=== PATIENT | female | born 1935 | race Caucasian/White ===

== ENCOUNTER 2021-05-24 19:08 | Emergency (ER) | payer MEDICARE ==
[~2021-05-24] VITALS: Ht 162.6 cm; Wt 70.0 kg
--- NOTE | 2021-05-24 19:22 | ED.ADGEN ---
General Adult EDM: Chief Complaint: MECHANICAL FALL HPI: HPI: Patient is a 86 year old female brought in by EMS after being found down. Patient is a nursing facility and was able to "escape" during dinnertime. She was found at another nursing facility on the ground. Patient had evidence of head trauma unknown downtime. Last was seen a few hours prior to being found. Blood on the ground per EMS was coagulated. States she is not on any blood thinners. Has a history of severe dementia and is at her baseline GCS 14. EMS was told that when they are trying to get her up with a "felt a pop" in her hip but did not tell EMS which side. Received both doses of her COVID-19 vaccine was unsure which one, last tetanus about 1 year ago. Review of Systems: Review of Systems: Unable to assess due to patient's dementia, she states no other complaints Current Medications: Current Medications Medications (Trade) Dose Ordered Sig/Christal Start Time Stop Time Status Last Admin Dose Admin Fentanyl Citrate (Fentanyl 2ml Vial) 25 mcg 1X ONCE 05/24/21 21:15 05/24/21 21:16 DC 05/24/21 21:41 25 MCG Lorazepam (Ativan Inj) 0.5 mg 1X ONCE 05/24/21 21:15 05/24/21 21:16 DC 05/24/21 21:41 0.5 MG Quetiapine Fumarate (SEROquel) 100 mg 1X STAT 05/24/21 20:18 05/24/21 20:43 DC 05/24/21 21:05 100 MG Allergies: Allergies: Allergies Coded Allergies Type Severity Reaction Last Updated Verified celecoxib Allergy Intermediate 05/24/21 Yes clonidine Allergy Intermediate 05/24/21 Yes hydrocodone Allergy Intermediate 05/24/21 Yes metronidazole Allergy Intermediate 05/24/21 Yes Physical Exam: PE: Constitutional: Well developed, well nourished, no acute distress, non-toxic appearance. [] HENT: Normocephalic, left occipital scalp hematoma, bilateral external ears normal, nose normal. [] Eyes: PERRLA, conjunctiva normal, no discharge. Pupils pinpoint [] Neck: No rigidity, supple, no stridor. [] Cardiovascular: Regular rate and rhythm, brisk cap refill [] Lungs & Thorax: Non labored symmetric respirations, no tachypnea or respiratory distress [] Abdomen: Soft, nondistended. Skin: Warm, dry, no erythema, no rash. Left occipital scalp superficial laceration, no active bleeding, several abrasions] Back: Unremarkable, no tenderness, no step-off or deformity Extremities: No deformities, range of motion grossly intact, no lower extremity edema. No tenderness palpation of extremity [] Neurologic: Alert and oriented X 3, no focal deficits noted. [] Psychologic: Affect normal, judgement normal, mood normal. [] Current Patient Data: Labs: Laboratory Tests Test 05/24/21 19:37 White Blood Count 7.1 x10^3/uL (4.0-11.0) Red Blood Count 3.80 x10^6/uL (3.50-5.40) Hemoglobin 11.9 g/dL (12.0-15.5) L Hematocrit 35.0 % (36.0-47.0) L Mean Corpuscular Volume 92 fL (79-100) Mean Corpuscular Hemoglobin 31 pg (25-35) Mean Corpuscular Hemoglobin Concent 34 g/dL (31-37) Red Cell Distribution Width 16.3 % (11.5-14.5) H Platelet Count 253 x10^3/uL (140-400) Neutrophils (%) (Auto) 57 % (31-73) Lymphocytes (%) (Auto) 30 % (24-48) Monocytes (%) (Auto) 9 % (0-9) Eosinophils (%) (Auto) 3 % (0-3) Basophils (%) (Auto) 2 % (0-3) Neutrophils # (Auto) 4.1 x10^3/uL (1.8-7.7) Lymphocytes # (Auto) 2.1 x10^3/uL (1.0-4.8) Monocytes # (Auto) 0.6 x10^3/uL (0.0-1.1) Eosinophils # (Auto) 0.2 x10^3/uL (0.0-0.7) Basophils # (Auto) 0.1 x10^3/uL (0.0-0.2) Sodium Level 141 mmol/L (136-145) Potassium Level 3.2 mmol/L (3.5-5.1) L Chloride Level 102 mmol/L (98-107) Carbon Dioxide Level 28 mmol/L (21-32) Anion Gap 11 (6-14) Blood Urea Nitrogen 14 mg/dL (7-20) Creatinine 0.8 mg/dL (0.6-1.0) Estimated GFR (Cockcroft-Gault) 67.7 BUN/Creatinine Ratio 18 (6-20) Glucose Level 123 mg/dL (70-99) H Calcium Level 10.4 mg/dL (8.5-10.1) H Total Bilirubin 1.8 mg/dL (0.2-1.0) H Aspartate Amino Transferase (AST) 22 U/L (15-37) Alanine Aminotransferase (ALT) 17 U/L (14-59) Alkaline Phosphatase 86 U/L (46-116) Creatine Kinase 58 U/L (26-192) Myoglobin 82 ng/mL (9-82) Troponin I Quantitative < 0.017 ng/mL (0.000-0.055) SF-Qui-Q-Type Natriuretic Peptide 267 pg/mL (0-449) Total Protein 7.4 g/dL (6.4-8.2) Albumin 3.5 g/dL (3.4-5.0) Albumin/Globulin Ratio 0.9 (1.0-1.7) L Laboratory Tests 05/24/21 19:37 Laboratory Tests 05/24/21 19:37 Vital Signs: Vital Signs Date Time Temp Pulse Resp B/P (MAP) Pulse Ox O2 Delivery O2 Flow Rate FiO2 05/24/21 21:41 16 95 05/24/21 19:15 98.9 90 182/86 (118) Room Air 98.9 EKG: EKG: Ventricular rhythm, heart rate 70/min, right axis deviation [] Heart Score: C/O Chest Pain: No HEART Score for Chest Pain: HEART Score for Chest Pain Response (Comments) Value History Slighlty/Non-Suspicious 0 ECG Nonspecific Repolarizatio 1 Age > 65 2 Risk Factors 1 or 2 Risk Factors 1 Troponin < Normal Limit 0 Total 4 Risk Factors: Risk Factors: DM, Current or recent (<one month) smoker, HTN, HLP, family history of CAD, obesity. Risk Scores: Score 0 - 3: 2.5% MACE over next 6 weeks - Discharge Home Score 4 - 6: 20.3% MACE over next 6 weeks - Admit for Clinical Observation Score 7 - 10: 72.7% MACE over next 6 weeks - Early Invasive Strategies Radiology/Procedures: Radiology/Procedures: [facility] [address] [place] [address] IMAGING REPORT Signed PATIENT: RAMIN GARIBAY ACCOUNT: [id number] : 1935 LOCATION: ER AGE: 86 SEX: F EXAM STATUS: REG ER ORD. PHYSICIAN: MAINOR GOMEZ MD REASON: fall PROCEDURE: HIP BILATERAL WITH PELVIS Examination: Frontal view of the chest, 2 views of the bilateral hips HISTORY: History of fall COMPARISON: None available FINDINGS: Low lung volumes and technique accentuates heart size and pulmonary vascularity. Left-sided cardiac pacer is identified. The lungs are clear. Left total hip arthroplasty changes. Moderate joint space loss right hip joint likely degenerative changes. No acute fracture identified. Moderate degenerative changes lower lumbar spine. IMPRESSION: 1. No acute osseous findings. 2. Moderate degenerative changes right hip joint. 2. No acute cardiopulmonary findings. Electronically signed by: Mode Venegas MD (05/24/2021 8:34 PM) [id number] DICTATED and SIGNED BY: MODE VENEGAS MD DATE: 05/24/[id number] 0 [][address] [address] IMAGING REPORT Signed PATIENT: RAMIN GARIBAY ACCOUNT: [id number] : 1935 LOCATION: ER AGE: 86 SEX: F EXAM STATUS: REG ER ORD. PHYSICIAN: MAINOR GOMEZ MD REASON: head trauma PROCEDURE: CT HEAD AND CERVICAL SPINE WO CT head without contrast. CT cervical spine without contrast. PQRS statement: CT scans at this facility use dose reduction including either automated exposure control, iterative reconstructions, and /or weight based radiation dosing via mA and kV modification when appropriate to reduce radiation dose to as low as reasonably achievable. HISTORY: Head trauma, injury, history of fall. CT abdomen findings: Mild generalized brain atrophy. No intracranial hemorrhage, mass, hydrocephalus, extra-axial fluid collections or infarction. 2 cm right parietal periventricular white matter hypoattenuating lesion could represent a chronic lacunar ischemic infarct. Left parietal and occipital scalp subcentimeter in thickness hematoma. Fluid within the sphenoid sinuses. No fracture of the skull base or calvarium. Orbits are unremarkable. IMPRESSION: 1. No acute intracranial CT abnormality. 2. Mild left parietal occipital scalp hematoma. No skull fracture. 3. Sphenoid sinus fluid could be due to sinusitis. CT cervical spine findings: Craniocervical junction intact. Cervical vertebral body height and alignment intact. 2 mm anterolisthesis of C3 on C4, 2 mm anterolisthesis of C5 on C6 and 3 mm anterolisthesis of C6 on C7 and 3 mm yash listhesis C7 on T1 associated with disc disease and facet arthritis at these levels. Osteoarthritis of the C1-C2 atlantodental articulation and joint capsule thickening as well as arthritis with bone spurring at the left lateral mass articulation. No fracture of the cervical spine. Multilevel cervical disc height loss, disc bulges and protrusions and uncovertebral facet spurring with spinal canal and neural foraminal stenoses at several levels, as well as spinal canal stenosis due to the joint capsule thickening at C1-C2. IMPRESSION: No acute osseous injury of the cervical spine. Cervical disc disease and facet arthritis as described above. Electronically signed by: Halley Strange MD (05/24/2021 10:29 PM) [id number] DICTATED and SIGNED BY: HALLEY STRANGE MD DATE: 05/24/21 [id number] [facility] [address] [place] [address] IMAGING REPORT Signed PATIENT: RAMIN GARIBAY ACCOUNT: [id number] : 1935 LOCATION: ER AGE: 86 SEX: F EXAM STATUS: REG ER ORD. PHYSICIAN: MAINOR GOMEZ MD REASON: fall PROCEDURE: CHEST AP ONLY Examination: Frontal view of the chest, 2 views of the bilateral hips HISTORY: History of fall COMPARISON: None available FINDINGS: Low lung volumes and technique accentuates heart size and pulmonary vascularity. Left-sided cardiac pacer is identified. The lungs are clear. Left total hip arthroplasty changes. Moderate joint space loss right hip joint likely degenerative changes. No acute fracture identified. Moderate degenerative changes lower lumbar spine. IMPRESSION: 1. No acute osseous findings. 2. Moderate degenerative changes right hip joint. 2. No acute cardiopulmonary findings. Electronically signed by: Mode Venegas MD (05/24/2021 8:34 PM) [id number] DICTATED and SIGNED BY: MODE VENEGAS MD DATE: 05/24/[id number] 0 Course & Med Decision Making: Course & Med Decision Making Pertinent Labs and Imaging studies reviewed. (See chart for details) Work remarkable, superficial cut to left occiput with underlying hematoma. Is not full-thickness does not require stitches. Nonadherent dressing placed. Patient states that she remembers tripping as a mechanism of falling. Work-up unremarkable. Family at bedside state patient is at her baseline. No signs of intracranial injuries. [] Dragon Disclaimer: Dragon Disclaimer: This electronic medical record was generated, in whole or in part, using a voice recognition dictation system. Departure Departure Impression: Primary Impression: Fall Additional Impression: Scalp abrasion Disposition: 01 HOME / SELF CARE / HOMELESS Condition: STABLE Patient Instructions: Scalp Hematoma, Wound Care, [id number] Problem Qualifiers MAINOR GOMEZ MD May 24, 2021 19:22
[2021-05-24 19:44] LABS: BASO # 0.1 x10^3/uL (0.0-0.2); BASO % 2 % (0-3); EOS # 0.2 x10^3/uL (0.0-0.7); EOS % 3 % (0-3); HEMOGLOBIN 11.9 g/dL (12.0-15.5); LYMPH # 2.1 x10^3/uL (1.0-4.8); LYMPH % 30 % (24-48); MEAN CORPUSCULAR HEMOGLOBIN 31 pg (25-35); MEAN CORPUSCULAR HGB CONC 34 g/dL (31-37); MEAN CORPUSCULAR VOLUME 92 fL (79-100); MONO # 0.6 x10^3/uL (0.0-1.1); MONO % 9 % (0-9); NEUT # 4.1 x10^3/uL (1.8-7.7); NEUT % 57 % (31-73); PLATELET COUNT 253 x10^3/uL (140-400); RED CELL DISTRIBUTION WIDTH 16.3 % (11.5-14.5); WHITE BLOOD COUNT 7.1 x10^3/uL (4.0-11.0)
[2021-05-24 19:54] LABS: CALCIUM 10.4 mg/dL (8.5-10.1); CREATININE 0.8 mg/dL (0.6-1.0); GFR 67.7; POTASSIUM 3.2 mmol/L (3.5-5.1)
[2021-05-24 20:07] LABS: ALBUMIN 3.5 g/dL (3.4-5.0); ALBUMIN/GLOBULIN RATIO 0.9 (1.0-1.7); TOTAL BILIRUBIN 1.8 mg/dL (0.2-1.0); TOTAL PROTEIN 7.4 g/dL (6.4-8.2)
[2021-05-24] MEDS ORDERED: QUEtiapine 100 MG TABLET. PO STA (20:18)
--- NOTE | 2021-05-24 20:36 | RAD ---
Examination: Frontal view of the chest, 2 views of the bilateral hips HISTORY: History of fall COMPARISON: None available FINDINGS: Low lung volumes and technique accentuates heart size and pulmonary vascularity. Left-sided cardiac p acer is identified. The lungs are clear. Left total hip arthroplasty changes. Moderate joint space loss right hip joint likely degenerative ch anges. No acute fracture identified. Moderate degenerative changes lower lumbar spine. IMPRESSION: 1. No acute osseous findings. 2. Moderate degenerative changes right hip joint. 2. No acute cardiopulmonary findings. Electronically signed by: Mode Venegas MD (05/24/2021 8:34 PM) [id number]
[2021-05-24] MEDS ORDERED: fentaNYL PF VIAL 100 MCG/2 ML VIAL IVP ONE (21:15)
[2021-05-24 22:19] VITALS: BP 126/65
--- NOTE | 2021-05-24 22:32 | RAD ---
CT head without contrast. CT cervical spine without contrast. PQRS statement: CT scans at this facility use dose reduction including either automated exposure cont rol, iterative reconstructions, and /or weight based radiation dosing via mA and kV modification when appropriate to reduce radiation dose to as low as reasonably achievable. HISTORY: Head trauma, injury, history of fall. CT abdomen findings: Mild generalized brain atrophy. No intracranial hemorrhage, mass, hydrocephalus, extra-axial fluid collections or infarction. 2 cm right parietal periventricular white matter hypoat tenuating lesion could represent a chronic lacunar ischemic infarct. Left parietal and occipital scal p subcentimeter in thickness hematoma. Fluid within the sphenoid sinuses. No fracture of the skull ba se or calvarium. Orbits are unremarkable. IMPRESSION: 1. No acute intracranial CT abnormality. 2. Mild left parietal occipital scalp hematoma. No skull fracture. 3. Sphenoid sinus fluid could be due to sinusitis. CT cervical spine findings: Craniocervical junction intact. Cervical vertebral body height and alignm ent intact. 2 mm anterolisthesis of C3 on C4, 2 mm anterolisthesis of C5 on C6 and 3 mm anterolisthes is of C6 on C7 and 3 mm anterolisthesis C7 on T1 associated with disc disease and facet arthritis at these levels. Osteoarthritis of the C1-C2 atlantodental articulation and joint capsule thickening as well as arthritis with bone spurring at the left lateral mass articulation. No fracture of the cervic al spine. Multilevel cervical disc height loss, disc bulges and protrusions and uncovertebral facet s purring with spinal canal and neural foraminal stenoses at several levels, as well as spinal canal st enosis due to the joint capsule thickening at C1-C2. IMPRESSION: No acute osseous injury of the cervical spine. Cervical disc disease and facet arthritis as described above. Electronically signed by: Chip Strange MD (05/24/2021 10:29 PM) [id number]
--- NOTE | 2021-05-25 06:00 | EKG ---
[facility] [address] [place] [address] Test Date: 2021-05-24 Test Time: 19:26:27 Pat Name: RAMIN GARIBAY Department: Room: Gender: F Documentation Nurse: : 1935 Requested By: MAINOR GOMEZ Order Number: [id number] Reading MD: Measurements Intervals [place] Rate: 72 P: -90 WA: 148 QRS: 265 QRSD: 186 T: 79 QT: 424 QTc: 466 Interpretive Statements SUPRAVENTRICULAR RHYTHM COMPLEX(ES) WITH ABERRANT INTRAVENTRICULAR CONDUCTION ABNORMAL RIGHT SUPERIOR AXIS DEVIATION NON SPECIFIC INTRAVENTRICULAR BLOCK QRS(T) CONTOUR ABNORMALITY CONSISTENT WITH ANTEROSEPTAL INFARCT POSSIBLY RECENT CONSIDER INFERIOR MYOCARDIAL DAMAGE ABNORMAL ECG RI6.02 No previous ECG available for comparison
== END 2021-05-24 23:13 | disposition home or self-care (01) ==
LOC: ER 19:08
DX: S00.01XA Abrasion of scalp, initial encounter (principal); F03.90 Unspecified dementia, unspecified severity, without behavioral disturbance, psychotic disturbance, mood disturbance, and anxiety; Z88.1 Allergy status to other antibiotic agents; Z88.5 Allergy status to narcotic agent; W18.39XA Other fall on same level, initial encounter; Y93.89 Activity, other specified; Y92.89 Other specified places as the place of occurrence of the external cause; Y99.8 Other external cause status
CPT/HCPCS: 36415; 70450; 71045; 72125; 73521; 80053; 82550; 83874; 83880; 84484; 85025; 93005; 96374; 96375; 99285; J2060; J3010